=== PATIENT | male | born 1990 | race African-American/Black ===

== ENCOUNTER 2018-12-13 20:51 | Emergency (ER) | payer OTHER ==
[~2018-12-13] VITALS: Ht 188 cm; Wt 96.0 kg
[~2018-12-13 20:51] MED LIST: NOCURR
[2018-12-13] MEDS ORDERED: BICT1TAB PO (20:54)
[2018-12-13 21:00] VITALS: BP 149/96
== END 2018-12-13 22:00 | disposition left against medical advice (07) ==
LOC: EMS 20:53
DX: R51 Headache (principal); Z53.21 Procedure and treatment not carried out due to patient leaving prior to being seen by health care provider